=== PATIENT | female | born 1955 | race Hispanic/Latino ===

== ENCOUNTER 2017-07-21 23:11 | Observation (INO) | payer BC ==
[2017-07-21 23:18] VITALS: BMI 29.8
[2017-07-21] MEDS ORDERED: Dextrose 50% SYRINGE Inj (50 ml) IVP ONE (23:20)
[2017-07-21] MEDS ORDERED: Dextrose 50% SYRINGE Inj (50 ml) ONE (23:25)
[2017-07-21 23:27] VITALS: RESP 18
--- NOTE | 2017-07-21 23:48 | ED PDOC ---
Arrival/HPI - General Chief Complaint: Chest Pain Time Seen by Provider: 07/21/17 23:15 Historian: Patient - History of Present Illness Narrative History of Present Illness (Text): 07/21/17 23:41 Iliana Davis is a 61 year old female, whose past medical history includes diabetes, atrial fibrillation, hyperlipidemia, hypothyroidism, and diverticulitis with partial colectomy, who presents to the Emergency department complaining of chest pain. Patient states while at home tonight she began experiencing chest pain radiating to her back and neck with associated headache and nausea. Patient states she took 2 Aspirin tonight prior to arrival and notes she feels a little better. Patient denies any fever, chills, shortness of breath, nausea, vomiting, diarrhea, urinary symptoms, back pain, neck pain, dizziness, or any other complaints. PMD: Dr. Neil Time/Duration: Prior to Arrival Symptom Onset: Gradual Symptom Course: Unchanged Activities at Onset: Light Context: Home Past Medical History - Provider Review Nursing Documentation Reviewed: Yes - Infectious Disease Hx of Infectious Diseases: None - Cardiac Hx Cardiac Disorders: Yes Hx Atrial Fibrillation: Yes - Endocrine/Metabolic Hx Diabetes Insipidus: Yes Hx Diabetes Mellitus Type 2: Yes - Musculoskeletal/Rheumatological Hx Falls: No - Gastrointestinal Hx Diverticulitis: Yes (colon resection) - Psychiatric Hx Depression: No Hx Emotional Abuse: No Hx Physical Abuse: No Hx Substance Use: No - Surgical History Hx Orthopedic Surgery: Yes (right knee) - Anesthesia Hx Anesthesia: Yes Hx Anesthesia Reactions: No - Suicidal Assessment Feels Threatened In Home Enviroment: No Family/Social History - Physician Review Nursing Documentation Reviewed: Yes Family/Social History: Unknown Family HX Smoking Status: Never Smoked Hx Alcohol Use: Yes (occasional) Hx Substance Use: No Hx Substance Use Treatment: No Allergies/Home Meds Allergies/Adverse Reactions: Allergies morphine Adverse Reaction (Verified 07/21/17 23:19) RASH Home Medications: Home Meds Medication Instructions Recorded Confirmed Celecoxib [CeleBREX] 200 mg PO DAILY 07/21/17 07/21/17 Dulaglutide [Trulicity] 0 mg SC DAILY 07/21/17 07/21/17 Empagliflozin [Jardiance] 25 mg PO DAILY 07/21/17 07/21/17 FLUoxetine [Fluoxetine HCl] 40 mg PO DAILY 07/21/17 07/21/17 Insulin Lispro Mix 75/25 [humalog 0 units SC DAILY 07/21/17 07/21/17 Mix 75/25 75 U/Ml-25 U/Ml 10 Ml] Levothyroxine [Synthroid] 88 mcg PO DAILY 07/21/17 07/21/17 Metoprolol Tartrate [Lopressor] 50 mg PO DAILY 07/21/17 07/21/17 Nizatidine 150 mg PO DAILY 07/21/17 07/21/17 Lcssw-2-Jsmy Ethyl Esters 1 GM 1 gm PO BID 07/21/17 07/21/17 [Lovaza] Pantoprazole Sodium [Protonix] 40 mg PO DAILY 07/21/17 07/21/17 Ramipril [Altace] 2.5 mg PO DAILY 07/21/17 07/21/17 Rosuvastatin Calcium [Crestor] 5 mg PO DAILY 07/21/17 07/21/17 Review of Systems - Physician Review All systems were reviewed & negative as marked: Yes - Review of Systems Constitutional: Normal. absent: Fevers Eyes: Normal ENT: Normal Respiratory: Normal Cardiovascular: Chest Pain Gastrointestinal: Nausea Genitourinary Female: Normal. absent: Dysuria, Frequency, Hematuria Musculoskeletal: Back Pain, Neck Pain Skin: Normal. absent: Rash Neurological: Normal. absent: Headache, Dizziness Endocrine: Normal Hemo/Lymphatic: Normal Psychiatric: Normal Physical Exam Vital Signs Reviewed: Yes Vital Signs Temp Pulse Resp BP Pulse Ox 07/21/17 23:26 97.6 F 89 18 147/86 96 Temperature: Afebrile Blood Pressure: Normal Pulse: Regular Respiratory Rate: Normal Appearance: Positive for: Well-Appearing, Non-Toxic, Comfortable Pain Distress: None Mental Status: Positive for: Alert and Oriented X 3 Finger Stick Blood Glucose: 52 - Systems Exam Head: Present: Atraumatic, Normocephalic Pupils: Present: PERRL Extroacular Muscles: Present: EOMI Conjunctiva: Present: Normal Mouth: Present: Moist Mucous Membranes Neck: Present: Normal Range of Motion Respiratory/Chest: Present: Clear to Auscultation, Good Air Exchange. No: Respiratory Distress, Accessory Muscle Use Cardiovascular: Present: Regular Rate and Rhythm, Normal S1, S2. No: Murmurs Abdomen: Present: Normal Bowel Sounds. No: Tenderness, Distention, Peritoneal Signs Back: Present: Normal Inspection Upper Extremity: Present: Normal Inspection. No: Cyanosis, Edema Lower Extremity: Present: Normal Inspection. No: Edema Neurological: Present: GCS=15, CN II-XII Intact, Speech Normal Skin: Present: Warm, Dry, Normal Color. No: Rashes Psychiatric: Present: Alert, Oriented x 3, Normal Insight, Normal Concentration Medical Decision Making ED Course and Treatment: 07/21/17 23:41 Impression: 61 year old female complaining of chest pain, nausea, and headache. Plan: -- EKG -- Chest X-ray -- Labs, cardiac enzymes -- D50 -- Reassess and disposition Prior Visits: Notes and results from previous visits were reviewed. Progress Notes: Reviewed EKG, NSR at [address]. Non-specific ST/T wave changes. 07/22/17 01:00 Chest X-ray reviewed, shows no acute processes. 07/22/17 02:03 Case was discussed with Dr. Neil, accepted pt in to her service. Pt will go to Telemetry observation for chest pain. - Lab Interpretations Lab Results: 07/21/17 23:35 07/21/17 23:35 Lab Results 07/21/17 23:51: POC Glucose (mg/dL) 201 H 07/21/17 23:35: WBC 9.7 D, RBC 4.79, Hgb 13.1, Hct 40.4, MCV 84.3, MCH 27.3, MCHC 32.4, RDW 15.6 H, Plt Count 387, MPV 9.4 07/21/17 23:35: Sodium 145, Potassium 3.7, Chloride 105, Carbon Dioxide 24, Anion Gap 20, BUN 12, Creatinine 0.6 L, Est GFR ( Amer) > 60, Est GFR ( Non-Af Amer) > 60, Random Glucose 61 L, Calcium 10.5, Total Bilirubin 0.4, AST 35, ALT 46, Alkaline Phosphatase 45, Lactate Dehydrogenase 508, Total Creatine Kinase 107, Troponin I < 0.01, Total Protein 8.1, Albumin 4.9 H, Globulin 3.3, Albumin/Globulin Ratio 1.5 07/21/17 23:35: PT 11.0, INR 0.97, APTT 28.0 - RAD Interpretation Radiology Orders: 07/21/17 23:34 CHEST PORTABLE [RAD] Stat - EKG Interpretation Interpreted by ED Physician: Yes Type: 12 lead EKG - Medication Orders Current Medication Orders: Insulin Human Regular (Humulin R Low) 0 units SC ACHS TAMARA PRN Reason: Protocol Discontinued Medications Dextrose (Dextrose 50% Inj) 50 ml IVP ONCE ONE Stop: 07/21/17 23:21 Last Admin: 07/21/17 23:25 Dose: 50 ml IVP Administration Document 07/21/17 23:25 SS (Rec: 07/22/17 00:00 SS [facility] [id number]) Charges for Administration # of IVP Administrations 1 - Scribe Statement The provider has reviewed the documentation as recorded by the Scribe Sonia Madrigal All medical record entries made by the Scribe were at my direction and personally dictated by me. I have reviewed the chart and agree that the record accurately reflects my personal performance of the history, physical exam, medical decision making, and the department course for this patient. I have also personally directed, reviewed, and agree with the discharge instructions and disposition. Disposition/Present on Arrival - Present on Arrival Any Indicators Present on Arrival: No History of DVT/PE: No History of Uncontrolled Diabetes: No Urinary Catheter: No History of Decub. Ulcer: No History Surgical Site Infection Following: None - Disposition Have Diagnosis and Disposition been Completed?: Yes Diagnosis: Chest pain, Uncontrolled diabetes mellitus Disposition: HOSPITALIZED Disposition Time: 02:15 Condition: STABLE Discharge Instructions (ExitCare): Chest Pain (ED) Referrals: Davy Neil MD [Primary Care Provider] - Follow up with primary Forms: for[MD] (Yakut)
[2017-07-22 00:19] LABS: HEMOGLOBIN 13.1 g/dL (12.0-16.0); MEAN CELL VOLUME 84.3 fl (80.0-105.0); MEAN CORPUSCULAR HEMOGLOBIN 27.3 pg (25.0-35.0); MEAN CORPUSCULAR HGB CONC 32.4 g/dl (31.0-37.0); MEAN PLATELET VOLUME 9.4 fl (7.0-11.0); RBC 4.79 10^6/uL (3.5-6.1); RED CELL DISTRIBUTION WIDTH 15.6 % (11.5-14.5); WHITE BLOOD COUNT 9.7 10^3/ul (4.5-11.0)
[2017-07-22 00:21] LABS: INR 0.97 (0.93-1.08)
[2017-07-22 00:46] LABS: ALB/GLOB RATIO 1.5 (1.1-1.8); ALBUMIN 4.9 g/dL (3.0-4.8); ALT/SGPT 46 U/L (7-56); AST/SGOT 35 U/L (14-36); BLOOD UREA NITROGEN 12 mg/dL (7-21); CALCIUM 10.5 mg/dL (8.4-10.5); GFR AFRICAN-AMERICAN > 60; GFR NON-AFRICAN AMERICAN > 60
[2017-07-22 00:56] LABS: TROPONIN I < 0.01 ng/mL
[2017-07-22] MEDS ORDERED: Metoprolol Succinate 25 mg XL Tab PO STA (03:26)
[2017-07-22] MEDS ORDERED: Pantoprazole 40 mg EC Tab PO STA (03:27)
[2017-07-22] MEDS ORDERED: Pantoprazole 40 mg EC Tab PO SCH (06:00)
[2017-07-22 07:07] VITALS: BP 108/69; TEMP 97.9; O2SAT 97
[2017-07-22] MEDS: Insulin Reg-LOW-Coverage SC SCH ×2 (08:06→12:46)
[2017-07-22] MEDS ORDERED: Potassium Chloride 20 mEq ER Tab PO ONE (08:46)
--- NOTE | 2017-07-22 10:08 | RAD ---
HISTORY: pain COMPARISON: 12/23/2014 FINDINGS: LUNGS: No active pulmonary disease. PLEURA: No significant pleural effusion identified, no pneumothorax apparent. CARDIOVASCULAR: Normal. OSSEOUS STRUCTURES: No significant abnormalities. VISUALIZED UPPER ABDOMEN: Normal. OTHER FINDINGS: None. IMPRESSION: No active disease.
[2017-07-22 11:03] VITALS: PULSE 74
--- NOTE | 2017-07-22 11:40 | CARD ---
APPROVED REPORT EKG Measurement Heart [id number] <Conclusion> Normal sinus rhythm Left axis deviation Low voltage QRS Clockwise Rotation.
[2017-07-22 13:10] LABS: HDL CHOLESTEROL 35 mg/dL (29-60)
[2017-07-22 13:23] LABS: LDL CHOLESTEROL 89 mg/dL (0-129); TROPONIN I < 0.01 ng/mL
--- NOTE | 2017-07-22 21:14 | CARD ---
APPROVED REPORT Protocol: MARISSA Test Type: Sestamibi Stress Test Attending Physician: Dr. Vicenta Matos Referring Physician: Dr. Davy Neil Test Indications: Chest Pain Height:5 ft 2 in Weight:163lbs Medications: TOPROL, PROTONIX Medical History: 61 YEAR OLD EMALE WITH A H/O A-FIB, DIABETES AND HIGH CHOLESTEROL Target HR: 161 bpm Resting ECG: RSR. Resting Heart Rate: 75 bpm Resting Blood Pressure: 134/78mmHg Submaximum (85%): 137 bpm POST EXERCISE Reason for Termination: Fatigue and Shortness of Breath. Target HR: No Max HR: 111 bpm 84% of Maximum Predicted HR: 161 bpm Exercise duration: 09:28 min:sec, 4 Stage Exercise capacity: 10.8METs Max Blood Pressure: 146/82mmHg Blood Pressure response to exercise: normal resting BP - appropriate response Heart Rate response to exercise: appropriate Chest Pain: No, none Angina index: 0 Arrhythmia: No, none ST Change: No, none Deviation: 0 mm TEST SUMMARY [id number]:[id number]/.0. [id number]/78.0. EXERCISESTAGE 103:[id number]/74.30. EXERCISESTAGE 203:[id number]/70.2. EXERCISESTAGE 303:[id number]/82.0. EXERCISESTAGE 400:[id number]/82.0. [id number]/76.0. INTERPRETATION Stress EKG Conclusion: MYOVIEW NUCLEAR STRESS TEST STOPPED AFTER 9 MINUTES AND 28 SECONDS OF MARISSA PROTOCOL DUE TO FATIGUE AND SHORTNESS OF BREATH. PATIENT ACHIEVED 80% OF PREDICTED HEART RATE. NO CHEST PAIN. NO ST-T CHANGES. NUCLEAR SCAN REPORT TO FOLLOW. Signed by Vicenta Matos Electronically Approved: 07/22/2017 11:18:34 EXAM: Myocardial Perfusion REST/STRESS Stress Test Type: Exercise Treadmill Imaging Protocol Rest Spect myocardial perfusion imaging was performed in supine position 45 minutes following the injection of 10.3 mCi of Tc-99 Myoview. At peak stress, the patient was injected intravenously with 30.2mCi of Tc-99 tetrofosmin after an exercise time of 9 minutes and 28 seconds. Gated Stress Spect was performed 65 minutes after intravenous Tc-99 Myoview injection. The images were gated to evaluate regional wall motion and calculate ventricular ejection fraction.Images were reconstructed using backfilter projection method in short horizontal and verticle long axis. Spect slices were generated. LV Perfusion The quality of the study is good. The left ventricle is normal in size. The right ventricle is unremarkable. The lung uptake is normal. The distribution of tracer reveals mildly decreased perfusion involving most of the distal anterior and apical [place] oca on the stress study. The remainder of the LV myocardium is unremarkable. The rest myocardial perfusion study shows no significant change. Wall Motion Wall motion study shows good contractility of the left ventricle. LVEF = 63%. Conclusion 1. Essentially normal SPECT myocardial perfusion study. 2. Fixed, anterior and apical defects are most likely due to breast attenuation. 3. Normal gated wall motion of the left ventricle.
--- NOTE | 2017-07-22 21:21 | CON ---
DATE: TYPE OF DICTATION: Consult Service, Cardiology. REASON FOR CONSULTATION: Chest pain, palpitation, rule out coronary artery disease. BRIEF CLINICAL HISTORY: This is a 61-year-old female with past medical history significant for paroxysmal atrial fibrillation, mitral regurgitation, hypertension, diabetes, hyperlipidemia, and hypothyroidism, came in through the emergency room with complaint of chest pain. The patient states she always get chest pain off and on, retrosternal, goes to the back, but last night when it go to back, suddenly she has a chest pain, radiating to the back and then headaches, so they decided to come to the emergency room, at that time, also felt some palpitation. PAST MEDICAL HISTORY: Significant for non-obstructive coronary artery disease status post cardiac catheterization 8 to [address] Card Group and found to be non-obstructive. Now, the patient does not follow with Dr. Card. History of paroxysmal atrial fibrillation, history of hypothyroidism, history of stress test 2 to 3 years ago. History of last echocardiography here in the hospital 12/25/2014 showed moderate mitral regurgitation. Previous cardiac workup, the patient's stress test 2 to 3 years ago, it is normal. History of cardiac catheterization 8-7 years ago, 30% stenosis is noted in artery. History of most recent echo, 12/26/2014 moderate mitral regurgitation. Ejection fraction calculated was 52%, dated 12/26/2014. SOCIAL HISTORY: History of alcohol abuse. FAMILY HISTORY: Nonsignificant. CURRENT MEDICATIONS: The patient at home was taking Crestor 5 mg daily, aspirin 81 mg daily, Protonix 40 mg daily, levothyroxine 88 mg daily, Zetia 10 mg, Jardiance 25 mg daily, Lopressor 50 mg daily, Ramipril 2.5 mg daily, omega 3, metformin 1 gram twice, Trulicity daily. The patient states that at home the blood sugar was 70, while here was at 201. REVIEW OF SYSTEMS: As per HPI, PHYSICAL EXAMINATION VITAL SIGNS: As follows: Temperature afebrile, heart rate 71, blood pressure 108/61. HEENT: PERRLA. Extraocular muscles intact. NECK: Supple. No carotid bruit or thyromegaly. CHEST: Clear to auscultation. HEART: S1 and S2, regular. ABDOMEN: Soft. EXTREMITIES: Clubbing and cyanosis negative. LABORATORY DATA: Blood workup as follows: WBC 9.7, hemoglobin , hematocrit 30.4, platelet count 387. Chemistry shows sodium 145, potassium 3.7, chloride 105, , anion gap of , BUN 20, creatinine 0.6. Troponin 0.01. Total protein 8.12, albumin 4.9. EKG showed normal sinus 88, left axis deviation, poor RR progression. IMPRESSION: Diabetes, hypertension, and hyperlipidemia. EKG did not show any acute changes, given the multiple risk factor of coronary artery disease, suggested echo and stress test. The patient had a cardiac catheterization 8 to [address] Stephie Briceno, is non-obstructive coronary artery disease. Last stress test, according to the patient 3 to 4 years ago is negative. History of paroxysmal atrial fibrillation, history of moderate mitral regurgitation. RECOMMENDATIONS: We will do lipid profile, TSH, hemoglobin A1c. We will also do one set of troponin. If troponin remains negative, then we will do a stress test and echo today. Further recommendations depending on hospital course. We will follow start baby aspirin 81 mg daily and metoprolol 25 p.o. b.i.d. Further recommendation may depend upon hospital course and workup. Thank you Dr. Neil for proving us the opportunity in taking care of patient, Faustino Barrientos. Vicenta Arroyo MD
--- NOTE | 2017-07-23 01:49 | HP ---
HISTORY OF PRESENT ILLNESS: The patient is a 61-year-old, who states yesterday she went out with her daughter for shopping. She felt hungry and they ate the [employer] sandwich. When she came home, she routinely took her usual dose of insulin and took her evening medication. The patient states she was having some chest pain for few days, mild, did not pay much attention; but when she was about to go to bed, she started to have more chest pain. She felt a little short of breath. She thought it is going to disappear, but her symptoms got worse. She called her son-in-law, who is anesthesiologist, who advised them go to Emergency Room to rule out that she is not having underlying ischemia. The patient complained of chest pain off and on for the last few weeks. Denies any palpitation. The patient states she did not feel as if her blood sugar is low. She usually feels very jittery and shaky, but this was different. So brought her to the Emergency Room. The patient was admitted in 12/2014. At that point, she had AFib. She was on anticoagulant for some time, later on she had Holter placed and she was found to be in regular rhythm. So, she was taken off of anticoagulant. PAST MEDICAL HISTORY: She has medical history significant for, 1. Hypertension. 2. Insulin-dependent diabetes. 3. Hyperlipidemia. 4. History of gastritis. 5. History of mood disorder. 6. Hypothyroidism. ALLERGIES: SHE IS ALLERGIC TO MORPHINE. MEDICATIONS AT HOME: She is on Protonix. She is on levothyroxine 88 mcg daily, Zetia 10 mg daily, Jardiance 25 p.o. daily, metoprolol 50 mg daily, Ramipril 2.5 daily, Prozac 40 mg daily, Celebrex 200 daily as needed, metformin 1000 twice a day. She is on 75/25 of 20-30 units b.i.d. She is on Trulicity 0.75 once a week. SOCIAL HISTORY: She is , lives with her . Denies smoking, drinking or alcohol use. REVIEW OF SYSTEMS: Significant for having shortness of breath. But by the time I saw the patient, she is completely fine, no chest pain, no shortness of breath. PHYSICAL EXAMINATION: VITAL SIGNS: She is afebrile, pulse 71, respirations 18, blood pressure 108/69. LUNGS: Bilateral good air flow. No rhonchi or crackle. HEART: S1 and S2 audible. ABDOMEN: Soft, nontender, no rebound, no guarding. NEUROLOGICALLY: She is awake, alert, oriented, communicative. LABORATORY DATA: WBC is 9.7, hemoglobin 13, hematocrit 40, platelets 387. PT 11 .0, INR is 0.97. Chemistry: Blood sugar is 204, LDH is 382, CPK 97, troponin 0.01. ASSESSMENT: 1. Chest pain, probably noncardiac. Stress test done by Dr. Arroyo seems to be unremarkable. Official report is not available yet. 2. Uncontrolled diabetes. 3. Hypertension. 4. Hyperlipidemia. 5. Hypothyroidism. PLAN: The patient is being discharged home. She will resume her medication. We will follow up her stress test and make further recommendation if there is any abnormality. Otherwise the patient will resume her medication. 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 Davy Neil MD
--- NOTE | 2017-07-23 15:34 | CARD ---
APPROVED REPORT EXAM: Two-dimensional and M-mode echocardiogram with Doppler and color Doppler. INDICATION Chest Pain LVFX 2D DIMENSIONS Left Atrium (2D)3.8 (1.6-4.0cm)IVSd1.0 (0.7-1.1cm) LVDd4.3 (3.9-5.9cm)PWd1.0 (0.7-1.1cm) LVDs3.1 (2.5-4.0cm)FS (%) 29.1 % LVEF (%)56.2 (>50%) M-Mode DIMENSIONS Aortic Root3.10 (2.2-3.7cm)Aortic Cusp Exc.1.80 (1.5-2.0cm) Aortic Valve AoV Peak Sxtmenuo729.0cm/Roya Peak GR.7mmHg Mitral Valve MV E Pfkaljjy60.1cm/sMV A Qmwyujlx12.2cm/sE/A ratio0.9 TDI Lateral E' Peak V6.04cm/sMedial E' Peak V6.14cm/sE/Lateral E'13.6 E/Medial E'13.4 Pulmonary Valve PV Peak Nagxfkoi93.8cm/sPV Peak Grad.4mmHg Tricuspid Valve TR Peak Sbdugdim484fw/sRAP [id number] Peak Gr.9mmHg [id number] LEFT VENTRICLE The left ventricle is normal size. There is normal left ventricular wall thickness. The left ventricular function is normal.EF-55% There is normal LV segmental wall motion. Transmitral Doppler flow pattern is Grade III-reversible restrictive diastolic dysfunction. No left ventricle thrombus noted on this study. There is no ventricular septal defect visualized. There is no left ventricular aneurysm. There is no mass noted in the left ventricle. RIGHT VENTRICLE The right ventricle is normal size. There is normal right ventricular wall thickness. The right ventricular systolic function is normal. ATRIA The left atrium size is normal. The right atrium size is normal. The interatrial septum is intact with no evidence for an atrial septal defect. AORTIC VALVE The aortic valve is normal in structure. No aortic regurgitation is present. There is no aortic valvular stenosis. There is no aortic valvular vegetation. MITRAL VALVE The mitral valve is thickened but opens well. Mitral regurgitation is mild to moderate. There is no mitral valve stenosis. There is no evidence of mitral valve prolapse. TRICUSPID VALVE The tricuspid valve leaflets are thickened , but open well. There is trace tricuspid regurgitation.RVSP-19 mmof Hg There is no tricuspid valve stenosis. There is no tricuspid valve prolapse or vegetation. PULMONIC VALVE The pulmonic valve is not well visualized. GREAT VESSELS The aortic root is normal in size. The ascending aorta is normal in size. The pulmonary artery is normal. The IVC is normal in size and collapses >50% with inspiration. PERICARDIAL EFFUSION There is no pleural effusion. There is no pericardial effusion. <Conclusion> Normal Chamber Size. EF-55-60% Mitral regurgitation is mild to moderate. There is trace tricuspid regurgitation.RVSP-19 mmof Hg There is no pericardial effusion.
== END 2017-07-22 14:54 | disposition home or self-care (01) ==
LOC: ED 23:11 → ERH 07-22 02:09 → 3RSO 07-22 04:06
PROVIDERS: ADMIT Internal Medicine; ATTEND Internal Medicine
DX: R07.89 Other chest pain (principal); E11.65 Type 2 diabetes mellitus with hyperglycemia; I10 Essential (primary) hypertension; I48.0 Paroxysmal atrial fibrillation; I25.10 Atherosclerotic heart disease of native coronary artery without angina pectoris; E78.5 Hyperlipidemia, unspecified; E03.9 Hypothyroidism, unspecified; I34.0 Nonrheumatic mitral (valve) insufficiency; Z79.4 Long term (current) use of insulin
CPT/HCPCS: 36415; 71045; 78452; 80053; 80061; 82550; 82948; 83036; 83615; 84443; 84484; 85027; 85610; 85730; 93005; 93017; 93306; 96374; 99285; A9502; G0378